=== PATIENT | male | born 1990 ===

== ENCOUNTER 2022-02-04 11:12 | Emergency (ER) | payer SELFPAY ==
[2022-02-04] MEDS ORDERED: MORPHINE 4 MG/1 ML INJ ONE (11:16)
[2022-02-04] MEDS ORDERED: HALOPERIDOL LACTATE 5 MG/1 ML INJ ONE (11:16)
[2022-02-04] MEDS ORDERED: ONDANSETRON 4 MG/2 ML INJ ONE (11:21)
[2022-02-04 11:39] LABS: Basophils # (Auto) 0.1 K/mm3 (0.0-0.1); Basophils % (Auto) 1.3 % (0.0-1.8); Eosinophils % (Auto) 0.4 % (0.0-4.3); Hematocrit 38.2 % (35.5-45.6); Hemoglobin 12.4 gm/dl (11.8-15.2); Lymphocytes # (Auto) 2.9 K/mm3 (1.2-5.4); Lymphocytes % (Auto) 39.8 % (13.4-35.0); Mean Corpuscular HGB Conc 32 % (32-34); Mean Corpuscular Volume 98 fl (84-94); Monocytes # (Auto) 0.6 K/mm3 (0.0-0.8); Monocytes % (Auto) 8.1 % (0.0-7.3); Platelet Count 265 K/mm3 (140-440); Red Blood Count 3.92 M/mm3 (3.65-5.03); Red Cell Distribution Width 13.9 % (13.2-15.2)
[2022-02-04 11:53] LABS: INR 1.05 (0.87-1.13)
[2022-02-04 11:54] LABS: Partial Thromboplastin Time 27.4 Sec. (24.2-36.6)
[2022-02-04 11:57] LABS: Alanine Aminotransferase 9 units/L (7-56); Albumin 4.6 g/dL (3.9-5); BUN/Creatinine Ratio 11; Blood Urea Nitrogen 10 mg/dL (9-20); Calcium 9.4 mg/dL (8.4-10.2); Hemolysis Index 38
[2022-02-04] MEDS ORDERED: MORPHINE 4 MG/1 ML INJ IV ONE ×2 (12:10→12:11)
[2022-02-04] MEDS ORDERED: SODIUM CHLORIDE 0.9% 1000 ML 1,000 ML IV ONE ×2 (12:11)
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
[2022-02-04] MEDS ORDERED: ceFAZolin/NS 1 GM/50 ML 1 GM/50 ML BAG IV ONE (12:21)
[2022-02-04] MEDS ORDERED: TETANUS,DIPH,PERTUSS(ACELL) VACCINE 0.5 ML SYRINGE IM ONE (12:30)
[2022-02-04 12:59] VITALS: BP 135/100
[2022-02-04] MEDS ORDERED: fentaNYL 100 MCG/2 ML INJ IV ONE (13:11)
== END 2022-02-04 16:50 ==
LOC: ED 11:12
DX: S62.292A Other fracture of first metacarpal bone, left hand, initial encounter for closed fracture (principal); S61.431A Puncture wound without foreign body of right hand, initial encounter; R79.1 Abnormal coagulation profile; W34.09XA Accidental discharge from other specified firearms, initial encounter; Y93.89 Activity, other specified; Y92.89 Other specified places as the place of occurrence of the external cause; Y99.8 Other external cause status
CPT/HCPCS: 36415; 36430; 71045; 73090; 73120; 80053; 85025; 85610; 85730; 86850; 86900; 86901; 86920; 96361; 96365; 96375; 96376; 99285; J0690; J1630; J2270; J2405; J3010; P9016